=== PATIENT | female | born 1960 | race Caucasian/White ===

== ENCOUNTER 2017-06-11 15:12 | Emergency (ER) | payer BC ==
[2017-06-11 15:27] VITALS: BP 155/95
--- NOTE | 2017-06-11 16:08 | EDM.PDOC ---
ED HPI GENERAL MEDICAL PROBLEM - General Chief Complaint: Head Injury Stated Complaint: FELL HURT HEAD Time Seen by Provider: 06/11/17 15:35 Source of Information: Reports: Patient History Limitations: Reports: No Limitations - History of Present Illness INITIAL COMMENTS - FREE TEXT/NARRATIVE: 56-year-old female was walking out to get mail from the mailbox 4 hours ago when she slipped on the ice and fell backward striking the occiput of her head very hard on the ice. She has never "hit her head that hard". Since that time she has persistent dizziness, feels unsteady, mild nausea but no vomiting or visual disturbance. She went to work and her coworkers were telling her she didn 't look right, her eyes looked funny and she should be checked out. Her neck is now hurting as well. She is not on anticoagulants. Onset: Sudden Duration: Hour(s): (4 hours ago) Location: Reports: Head Severity: Moderate Associated Symptoms: Reports: Headaches, Malaise, Other (Dizziness) Left Head Pain Score (Numeric/FACES): 5 - Related Data Allergies Allergy/AdvReac Type Severity Reaction Status Date / Time No Known Allergies Allergy Verified 10/08/15 06:56 Home Meds: Home Meds Multivitamin with Minerals [[place] Multivitamin with Mineral] 1 tab PO DAILY 12/30 [History] [place]-3 Fatty Acids [[place]-3] 2 - 4 tab PO DAILY 12/30/14 [History] Acetaminophen/HYDROcodone [[place] 325-5 MG] 1 - 2 tab PO Q4H PRN #30 tablet 08/27 [Rx] Estrogens, Conjugated [Premarin Vaginal Crm] 30 gm .XX ASDIRECTED 06/11/17 [ History] Past Medical History HEENT History: Reports: Sinusitis Cardiovascular History: Reports: SOB on Exertion Gastrointestinal History: Reports: Cholelithiasis, Chronic Diarrhea, Irritable Bowel Syndrome Genitourinary History: Reports: None 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: 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 Uterine Bleeding, Fibroids, Musculoskeletal History: Reports: Back Pain, Chronic Neurological History: Reports: Concussion Psychiatric History: Reports: Anxiety Endocrine/Metabolic History: Reports: Obesity/BMI 30+, Other (See Below) Other Endocrine/Metabolic History: hypoglycemic Dermatologic History: Reports: None - Infectious Disease History Infectious Disease History: Reports: Chicken Pox - Past Surgical History Head Surgeries/Procedures: Reports: None HEENT Surgical History: Reports: None Respiratory Surgical History: Reports: None GI Surgical History: Reports: Appendectomy, Cholecystectomy, Colonoscopy, Lysis of Adhesions, Other (See Below) Female Surgical History: Reports: Section, Hysterectomy, Salpingo- Oophorectomy, Other (See Below) Neurological Surgical History: Reports: None Dermatological Surgical History: Reports: Skin Biopsy Social & Family History - Family History Endocrine/Metabolic: Reports: Hypothyroidism Oncologic: Reports: Liver, Lung, Pancreatic - Tobacco Use Smoking Status *Q: Never Smoker Second Hand Smoke Exposure: No - Caffeine Use Caffeine Use: Reports: Coffee, Soda, Tea - Alcohol Use Days Per Week of Alcohol Use: 1 Number of Drinks Per Day: 2 Total Drinks Per Week: 2 - Recreational Drug Use Recreational Drug Use: No ED ROS GENERAL - Review of Systems Review Of Systems: See Below Constitutional: Reports: Malaise. Denies: Fever, Chills HEENT: Denies: Vision Change Respiratory: Denies: Shortness of Breath Cardiovascular: Denies: Chest Pain GI/Abdominal: Reports: Nausea. Denies: Vomiting Musculoskeletal: Reports: Neck Pain Skin: Reports: No Symptoms Neurological: Reports: Dizziness, Headache, Other (Feels unsteady) Psychiatric: Reports: No Symptoms ED EXAM, HEAD INJURY - Physical Exam Exam: See Below Exam Limited By: No Limitations General Appearance: Alert, No Apparent Distress Head: Scalp Abrasions (She has a superficial abrasion with ecchymosis and a mild hematoma on the occiput of the scalp) Nexus Criteria: Posterior, Midline Cervical Tenderness. No: Evidence of Intoxication, Altered Level of Consciousness, Focal Neurological Deficit Eyes: Bilateral Eye: EOMI, PERRL Neck: Paraspinous Muscle Tender, Tenderness Respiratory: No Respiratory Distress Neurologic: No Motor/Sensory Deficits, Normal Mood/Affect, Oriented x 3, Other ( Unsteady with [place] but she does not fall, there is no pronator drift) Course - Vital Signs Last Recorded V/S: Last Vital Signs Temp 95.7 F 06/11/17 15:33 Pulse 88 06/11/17 15:33 Resp 16 06/11/17 15:33 BP 155/95 H 06/11/17 15:33 Pulse Ox 95 06/11/17 15:33 - Orders/Labs/Meds Orders: Active Orders 24 hr Category Date Time Status Cervical Spine wo Cont [CT] Stat Exams 06/11/17 15:46 Taken Head wo Cont [CT] Stat Exams 06/11/17 15:46 Taken Meds: Medications Discontinued Medications Generic Name Dose Route Start Last Admin Trade Name Ann PRN Reason Stop Dose Admin Acetaminophen 1,000 mg 06/11/17 16:13 06/11/17 16:20 Tylenol Extra Strength PO 06/11/17 16:14 1,000 mg ONETIME ONE Administration Ondansetron HCl 4 mg 06/11/17 16:13 06/11/17 16:20 Zofran Odt PO 06/11/17 16:14 4 mg ONETIME ONE Administration - Re-Assessments/Exams Free Text/Narrative Re-Assessment/Exam: 06/11/17 16:[address] of the head and neck without contrast was obtained. 06/11/17 16:31 CT of the head and neck was negative but the patient continued to have some nausea. She was given 4 mg of sublingual Zofran along with 1000 mg of oral acetaminophen. She'll be discharged with 5 additional doses of Zofran and informed to follow-up as needed if not improving satisfactorily. Departure - Departure Time of Disposition: 16:47 Disposition: Home, Self-Care 01 Condition: Good Clinical Impression: Concussion injury of brain - Discharge Information Instructions: Concussion, Adult, [id number] Referrals: Genesis Peters PA [Primary Care Provider] - Forms: ED Department Discharge Care Plan Goals: A regular dose of ibuprofen should help, cool compresses or ice to sore areas for the next 2 days, and increase activity as tolerated. Return anytime if worsening or concerns, or consider rechecking in 5-7 days if not improving satisfactorily. Use Zofran under your tongue as directed for nausea for the first few days. If symptoms persist beyond that, you should be rechecked. - My Orders Last 24 Hours: My Active Orders 06/11/17 15:46 Cervical Spine wo Cont [CT] Stat Head wo Cont [CT] Stat - Assessment/Plan Last 24 Hours: My Active Orders 06/11/17 15:46 Cervical Spine wo Cont [CT] Stat Head wo Cont [CT] Stat
[2017-06-11] MEDS ORDERED: Acetaminophen 500 MG Tab PO ONE (16:13)
[2017-06-11] MEDS ORDERED: Ondansetron 4 MG Tab.DIS PO ONE (16:13)
== END 2017-06-11 16:48 | disposition home or self-care (01) ==
LOC: JP.ED 15:12
DX: S06.0X9A Concussion with loss of consciousness of unspecified duration, initial encounter (principal); E66.9 Obesity, unspecified; F41.9 Anxiety disorder, unspecified; Z90.49 Acquired absence of other specified parts of digestive tract; Z90.710 Acquired absence of both cervix and uterus; Z79.899 Other long term (current) drug therapy; W00.0XXA Fall on same level due to ice and snow, initial encounter; Z68.31 Body mass index [BMI] 31.0-31.9, adult
CPT/HCPCS: 70450; 72125; 99284; A9270

== ENCOUNTER 2018-10-02 09:15 | Emergency (ER) | payer BC ==
[2018-10-02 09:47] VITALS: BP 146/100; PULSE 94
--- NOTE | 2018-10-02 10:25 | EDM.PDOC ---
ED HPI GENERAL MEDICAL PROBLEM - General Chief Complaint: Skin Complaint Stated Complaint: LOWER BACK PAIN WITH RASH Time Seen by Provider: 10/02/18 10:05 Source of Information: Reports: Patient, Old Records, RN History Limitations: Reports: No Limitations - History of Present Illness INITIAL COMMENTS - FREE TEXT/NARRATIVE: 58 yo female presents with mid back pain and spasms. Was seen in the clinic and started on Toradol and methocarbamol recently that has not helped. Was told to go to the ER today. In addition she has a rash on her back that has progressed over the past few days. The rash is neither painful or itchy. She mentions that she has been applying topical things to her back for her pain and wonders if this may be causing her rash. Also, went to chiropractor for her pain without benefit. He thought her pain was due to the boot she had been wearing for the past month for a foot injury. Now that she is out of the boot her spine needs to readjust. Onset: Gradual Onset Date: 09/27/18 Duration: Day(s):, Constant Location: Reports: Back Quality: Reports: Other (spasms) Severity: Moderate Improves with: Reports: None Worsens with: Reports: Other (unknown) Context: Reports: Other (See HPI) Associated Symptoms: Reports: Rash (on back only) Treatments CONTACT CENTER REP: Reports: Other (see below) (See HPI) Right Middle Back Pain Score (Numeric/FACES): 8 - Related Data Allergies Allergy/AdvReac Type Severity Reaction Status Date / Time No Known Allergies Allergy Verified 10/02/18 09:45 Home Meds: Home Meds Multivitamin with Minerals [[place] Multivitamin with Mineral] 1 tab PO DAILY 12/30 [History] [place]-3 Fatty Acids [[place]-3] 2 - 4 tab PO DAILY 12/30/14 [History] Estrogens, Conjugated [Premarin Vaginal Crm] 30 gm .XX ASDIRECTED 06/11/17 [ History] Fish Oil/[place]-3 Fatty Acids [Fish Oil 1,000 MG] 1 tab PO DAILY 10/02/18 [ History] Ketorolac [Toradol] 1 tab PO Q6H PRN 10/02/18 [History] Methocarbamol 1 tab PO QID 10/02/18 [History] Past Medical History HEENT History: Reports: Sinusitis Cardiovascular History: Reports: SOB on Exertion Respiratory History: Reports: None Gastrointestinal History: Reports: Cholelithiasis, Chronic Diarrhea, Irritable Bowel Syndrome Genitourinary History: Reports: None 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: 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, Fibroids, Musculoskeletal History: Reports: Back Pain, Chronic, Other (See Below) Other Musculoskeletal History: L ankle injury torn ligaments Neurological History: Reports: Concussion Psychiatric History: Reports: Anxiety Endocrine/Metabolic History: Reports: Obesity/BMI 30+, Other (See Below) Other Endocrine/Metabolic History: hypoglycemic Hematologic History: Reports: None Immunologic History: Reports: None Oncologic (Cancer) History: Reports: None Dermatologic History: Reports: None - Infectious Disease History Infectious Disease History: Reports: Chicken Pox - Past Surgical History Head Surgeries/Procedures: Reports: None HEENT Surgical History: Reports: None Cardiovascular Surgical History: Reports: None Respiratory Surgical History: Reports: None GI Surgical History: Reports: Appendectomy, Cholecystectomy, Colonoscopy, Lysis of Adhesions, Other (See Below) Female Surgical History: Reports: Section, Hysterectomy, Salpingo- Oophorectomy, Other (See Below) Neurological Surgical History: Reports: None Musculoskeletal Surgical History: Reports: None Dermatological Surgical History: Reports: Skin Biopsy Social & Family History - Family History Endocrine/Metabolic: Reports: Hypothyroidism Oncologic: Reports: Liver, Lung, Pancreatic - Tobacco Use Smoking Status *Q: Never Smoker - Caffeine Use Caffeine Use: Reports: Coffee - Recreational Drug Use Recreational Drug Use: No ED ROS GENERAL - Review of Systems Review Of Systems: See Below Constitutional: Reports: No Symptoms HEENT: Reports: No Symptoms Respiratory: Reports: No Symptoms Cardiovascular: Reports: No Symptoms GI/Abdominal: Reports: No Symptoms : Reports: No Symptoms Musculoskeletal: Reports: Back Pain (mid with spasms) Skin: Reports: Rash (back only) Neurological: Reports: No Symptoms Psychiatric: Reports: No Symptoms ED EXAM, SKIN/RASH Exam: See Below Exam Limited By: No Limitations General Appearance: Alert, WD/WN, Mild Distress Eye Exam: Bilateral Eye: Normal Inspection Ears: Normal External Exam, Hearing Grossly Normal Nose: Normal Inspection, No Blood Throat/Mouth: Normal Inspection, Normal Lips, Normal Oropharynx, Normal Voice, No Airway Compromise Head: Atraumatic, Normocephalic Neck: Normal Inspection Respiratory/Chest: No Respiratory Distress, Lungs Clear, Normal Breath Sounds, No Accessory Muscle Use Cardiovascular: Regular Rate, Rhythm, No Edema Back Exam: Normal Inspection, Vertebral Tenderness (roughly T10 level pain). No : CVA Tenderness (R), CVA Tenderness (L) Extremities: Normal Inspection Neurological: Alert, Oriented, CN II-XII Intact, Normal Cognition, No Motor/ Sensory Deficits Psychiatric: Normal Affect, Normal Mood Skin: Warm, Dry, Intact, Normal Color, Rash Location, Skin: Back Characteristics: Patchy, Other (scabbed over) Associated features: Scaling, Crusting (does not look like impetigo). No: Warmth, Tenderness, Swelling, Induration, Lymphangitis, Inflammation Course - Vital Signs Last Recorded V/S: Last Vital Signs Temp 36.4 C 10/02/18 09:50 Pulse 94 10/02/18 09:50 Resp 24 H 10/02/18 09:50 BP 146/100 H 10/02/18 09:50 Pulse Ox 99 10/02/18 09:50 - Orders/Labs/Meds Orders: Active Orders 24 hr Category Date Time Status Thoracic Spine 2V [CR] Stat Exams 10/02/18 10:18 Taken Meds: Medications Discontinued Medications Generic Name Dose Route Start Last Admin Trade Name Freq PRN Reason Stop Dose Admin Oxycodone/Acetaminophen 1 tab 10/02/18 10:42 10/02/18 10:47 Percocet 325-5 Mg PO 10/02/18 10:43 1 tab ONETIME ONE Administration - Radiology Interpretation Free Text/Narrative:: T-spine X-ray-neg Departure - Departure Time of Disposition: 11:01 Disposition: Home, Self-Care 01 Condition: Fair Clinical Impression: Back pain Qualifiers: Back pain location: thoracic back pain Chronicity: acute Back pain laterality: unspecified Qualified Code(s): M54.6 - Pain in thoracic spine - Discharge Information *PRESCRIPTION DRUG MONITORING PROGRAM REVIEWED*: No *COPY OF PRESCRIPTION DRUG MONITORING REPORT IN PATIENT HAWK: No Referrals: Genesis Peters PA [Primary Care Provider] - Forms: ED Department Discharge Additional Instructions: Follow up with PT. Take [place] in addition to your current meds as needed for pain relief. - My Orders Last 24 Hours: My Active Orders 10/02/18 10:18 Thoracic Spine 2V [CR] Stat - Assessment/Plan Last 24 Hours: My Active Orders 10/02/18 10:18 Thoracic Spine 2V [CR] Stat
[2018-10-02] MEDS ORDERED: Acetaminophen/oxyCODONE 325-5 MG Tab PO ONE (10:42)
--- NOTE | 2018-10-02 11:49 | CRLCR ---
INDICATION: Mid thoracic pain with muscle spasms TECHNIQUE: Thoracic spine 3 view. COMPARISON: None. FINDINGS: Bones: Alignment is normal. No fractures or significant bone lesions. Joints: Disc spaces and facets are unremarkable. Soft tissues: Unremarkable. IMPRESSION: Unremarkable thoracic spine. Dictated by: Nayan Chanel MD @ 10/02/2018 11:46:44 (Electronically Signed)
== END 2018-10-02 11:15 | disposition home or self-care (01) ==
LOC: JP.ED 09:15
DX: M54.6 Pain in thoracic spine (principal); Z79.899 Other long term (current) drug therapy
CPT/HCPCS: 72070; 99283; A9270

== ENCOUNTER 2021-01-20 06:52 | Day surgery (SDC) | payer BC ==
[2021-01-20] MEDS ORDERED: Propofol 200 MG/20 ML SDV ONE (07:18)
[2021-01-20] MEDS ORDERED: fentaNYL 100 MCG/2 ML SDV ONE (07:18)
[2021-01-20] MEDS ORDERED: Midazolam 1 MG/ML 2 ML SDV ONE (07:18)
[2021-01-20] MEDS ORDERED: Sodium Chloride 0.9% 1,000 ML IV SCH (07:30)
[2021-01-20 09:43] VITALS: PULSE 74
[2021-01-20 10:34] VITALS: BP 127/90
--- NOTE | 2021-01-20 15:53 | OR ---
DATE OF PROCEDURE: 01/20/2021 SURGEON: Ismael Rodrigues MD PROCEDURES PERFORMED: 1. Esophagogastroduodenoscopy. 2. Colonoscopy. FINDINGS: Gastric ulcer, not actively bleeding, but the source of the patient's abdominal pain. COMPLICATIONS: None. 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 ANESTHESIA: MAC. PREOPERATIVE DIAGNOSIS: Epigastric/diffuse abdominal pain. POSTOPERATIVE DIAGNOSIS: Epigastric/diffuse abdominal pain. RISKS: Risks, benefits, alternatives, and limitations including, but not limited to infection, bleeding, perforation, false positives, and false negatives were explained to the patient, and she wished to proceed. PROCEDURE IN DETAIL: The patient was placed in the left lateral decubitus position. The EGD scope was introduced and advanced atraumatically to the second part of the duodenum. Within the stomach itself, in the gastric antrum proper, the patient had an ulcer which was approximately 1 cm in size. This was not actively bleeding. This was biopsied in proximity for H pylori evaluation. On retroflex, there was no hiatal hernia. Air was removed from the stomach. GE junction was normal. The esophagus was normal. Digital rectal exam was performed next. Scope was introduced and advanced atraumatically to the ileocecal valve. A photo was taken of the appendiceal orifice. The scope was brought back through the ascending, transverse, descending colon, and retroflexed. No evidence of old or new blood. No masses. No polyps. No diverticulosis. No abnormalities on retroflex. Greater than 8 minutes was spent removing the scope. The prep was acceptable. Approximately 90% of the luminal surface could be seen. The patient tolerated the procedures well. Ismael Rodrigues MD /[id number]
== END 2021-01-20 10:36 | disposition home or self-care (01) ==
LOC: JP.SDS 06:52
PROVIDERS: ATTEND Surgery
DX: R93.3 Abnormal findings on diagnostic imaging of other parts of digestive tract (principal); K25.9 Gastric ulcer, unspecified as acute or chronic, without hemorrhage or perforation; K29.50 Unspecified chronic gastritis without bleeding
CPT/HCPCS: 43239; 45378; J2250; J2704; J3010; J7030

== ENCOUNTER 2021-05-24 08:03 | Day surgery (SDC) | payer BC ==
[2021-05-24] MEDS ORDERED: Dextrose 5%-Lactated Ringers 1,000 ML IV SCH (08:45)
[2021-05-24] MEDS ORDERED: Propofol 200 MG/20 ML SDV ONE (08:56)
[2021-05-24] MEDS ORDERED: Midazolam 1 MG/ML 2 ML SDV ONE (08:56)
[2021-05-24] MEDS ORDERED: fentaNYL 100 MCG/2 ML SDV ONE (08:56)
[2021-05-24] MEDS ORDERED: Glycopyrrolate 0.2 MG/ML 2 ML SDV IVPUSH ONE (09:30)
[2021-05-24 12:18] VITALS: BP 146/75; PULSE 89
[2021-05-26 08:13] LABS: H. PYLORI BREATH TEST Negative (Negative)
== END 2021-05-24 12:44 | disposition home or self-care (01) ==
LOC: JP.SDS 08:03
PROVIDERS: ATTEND Surgery
DX: K29.60 Other gastritis without bleeding (principal)
CPT/HCPCS: 83013; 87081; J2250; J2704; J3010; J3490; J7121

== ENCOUNTER 2023-10-18 18:13 | Emergency (ER) | payer OTHER ==
[2023-10-18 18:51] VITALS: BP 163/101; PULSE 91
== END 2023-10-18 19:56 | disposition home or self-care (01) ==
LOC: JP.ED 18:13
DX: S86.911A Strain of unspecified muscle(s) and tendon(s) at lower leg level, right leg, initial encounter (principal); Z88.2 Allergy status to sulfonamides; Z91.018 Allergy to other foods; Z91.011 Allergy to milk products; Z86.16 Personal history of COVID-19; Z90.49 Acquired absence of other specified parts of digestive tract; Z90.710 Acquired absence of both cervix and uterus; W18.40XA Slipping, tripping and stumbling without falling, unspecified, initial encounter
CPT/HCPCS: 73562-26-RT; 73562-RT; 99283

== ENCOUNTER 2024-07-28 07:02 | Day surgery (SDC) | payer BC ==
[2024-07-28 07:41] LABS: HEMATOCRIT 43.8 % (34.3-46.0); HEMOGLOBIN 15.3 g/dL (11.2-15.5); MEAN CORPUSCULAR HEMOGLOBIN 32.1 pg (31.6-35.5); MEAN CORPUSCULAR HGB CONC 34.9 g/dL (31.6-35.5); MEAN CORPUSCULAR VOLUME 91.8 fL (81.4-99.0); RED BLOOD CELL COUNT 4.77 M/uL (3.77-5.24); WHITE BLOOD CELL COUNT,WBC 4.8 K/uL (3.2-11.0)
[2024-07-28 08:05] LABS: A/G RATIO 1.3 (1.2-2.2); ALANINE AMINOTRANSFERASE,ALT 38 U/L (12-78); ALBUMIN 3.9 g/dL (3.4-5.0); ALKALINE PHOSPHATASE 61 U/L (46-116); ANION GAP 10.3 mmol/L (5.0-14.0); ASPARTATE AMNIOTRANSFERASE,AST 18 U/L (15-37); BILIRUBIN TOTAL 0.6 mg/dL (0.2-1.0); BLOOD UREA NITROGEN,BUN 26 mg/dL (7-18); CALCIUM 9.7 mg/dL (8.5-10.1); CARBON DIOXIDE,CO2 27 mmol/L (21-32); CHLORIDE,CL 108 mmol/L (100-108); EST CRCL DRUG DOSING (CG) 42.32 mL/min; ESTIMATED GFR 63 mL/min (>60); GLUCOSE RANDOM 102 mg/dL (74-106); POTASSIUM,K 4.5 mmol/L (3.6-5.2); PROTEIN TOTAL,TP 6.8 g/dL (6.4-8.2); SODIUM,NA 145 mmol/L (140-148)
[2024-07-28] MEDS: Nozin Nasal Sanitizer NASBOTH ONE (08:08)
[2024-07-28] MEDS: Lactated Ringers 1,000 ML IV SCH (08:22)
[2024-07-28] MEDS ORDERED: Dexamethasone 4 MG/ML SDV ONE (08:26)
[2024-07-28] MEDS ORDERED: fentaNYL 250 MCG/5 ML SDV ONE (08:26)
[2024-07-28] MEDS ORDERED: Propofol 200 MG/20 ML SDV ONE (08:26)
[2024-07-28] MEDS ORDERED: Ondansetron 4 MG/2 ML SDV ONE (08:26)
[2024-07-28] MEDS: ceFAZolin 2 GM in Premix Bag 1 BAG IV ONE (09:50)
[2024-07-28] MEDS: Bupivacaine 0.5% 30 ML SDV ONE (10:27)
[2024-07-28] MEDS: Acetaminophen/HYDROcodone 325-5 MG Tab PO ONE (12:51)
[2024-07-28 12:53] VITALS: BP 170/68; PULSE 77
[2024-07-28] MEDS: Ondansetron 4 MG/2 ML SDV IVPUSH ONE (14:02)
== END 2024-07-28 14:40 | disposition home or self-care (01) ==
LOC: JP.SDS 07:02
PROVIDERS: ATTEND Specialist
DX: S83.242A Other tear of medial meniscus, current injury, left knee, initial encounter (principal); M22.41 Chondromalacia patellae, right knee; Z88.2 Allergy status to sulfonamides; Z91.018 Allergy to other foods; X58.XXXA Exposure to other specified factors, initial encounter
CPT/HCPCS: 01400; 29881; 36415; 80053; 85027; 93005; 93010; A9270; J0665; J0690; J1100; J2405; J2704; J3010; J7120